=== PATIENT | male | born 1990 | race Caucasian/White ===

== ENCOUNTER 2019-01-31 00:41 | Emergency (ER) | payer OTHER ==
[2019-01-31 00:57] LABS: BILIRUBIN,URINE NEGATIVE (NEGATIVE); GLUCOSE, URINE (UA) NEGATIVE (NEGATIVE); KETONES,URINE (UA) NEGATIVE (NEGATIVE); LEUKOCYTE ESTERASE, URINE NEGATIVE (NEGATIVE); NITRITE,URINE NEGATIVE (NEGATIVE); OCCULT BLOOD,URINE NEGATIVE (NEGATIVE); PROTEIN,URINE NEGATIVE (NEGATIVE); UROBILINOGEN,URINE 0.2 (NORMAL) E.U./dL (NORMAL)
--- NOTE | 2019-01-31 00:59 | ED Physician Documentation ---
PD HPI ABD PAIN - Stated complaint Stated Complaint: NAUSEA/ABD PX - Chief complaint Chief Complaint: Abd Pain - History obtained from History obtained from: Patient - History of Present Illness Timing - onset: Today (onset of nausea and vomiting during PRT exercise this morning. Had some headache during the pushups but was relieved after with Tylenol. Has continued with nausea and poor intake, some vomiting through the day, and is feeling lightheaded and dehydrated into the evening. Trying to drink fluids, but limited by nausea and some emesis. No diarrhea. Denies URI symptoms. Has had some intermittent RLQ pain for few weeks, worse today and more consistent. No dysuria.) Timing - duration: Hours Timing - details: Abrupt onset, Still present Quality: Cramping, Aching, Pain Location: RLQ Radiation: Lower back Improved by: No: Eating, Vomiting Worsened by: Eating Associated symptoms: Nausea, Vomiting. No: Fever, Diarrhea, Constipation, Dysuria Similar symptoms before: Has not had sx before Recently seen: Not recently seen Review of Systems Constitutional: reports: Myalgias. denies: Fever, Chills Nose: denies: Rhinorrhea / runny nose, Congestion Throat: denies: Sore throat Cardiac: denies: Chest pain / pressure Respiratory: denies: Dyspnea, Cough GI: reports: Abdominal Pain (right lower), Nausea, Vomiting. denies: Abdominal Swelling : denies: Dysuria Skin: denies: Rash, Lesions Neurologic: reports: Generalized weakness. denies: Focal weakness, Numbness, Near syncope PD PAST MEDICAL HISTORY - Past Medical History Past Medical History: No Cardiovascular: None Respiratory: None Neuro: None Endocrine/Autoimmune: None GI: None : None HEENT: None Psych: None Musculoskeletal: None Derm: None - Past Surgical History Past Surgical History: Yes General: Other HEENT: Tonsil/Adenoidectomy - Present Medications Home Medications: Ambulatory Orders Medication Instructions Recorded Confirmed Docusate Sodium 100 mg PO DAILY #15 capsule 01/31/19 Ondansetron Odt [Zofran] 4 mg TL Q6H PRN #10 tablet 01/31/19 - Allergies Allergies/Adverse Reactions: Allergies Allergy/AdvReac Type Severity Reaction Status Date / Time ibuprofen [From Motrin] AdvReac Anaphylaxis Verified 01/31/19 00:55 naproxen [From Aleve] AdvReac Anaphylaxis Verified 01/31/19 00:54 - Social History Does the pt smoke?: No Smoking Status: Never smoker Does the pt drink ETOH?: Yes Does the pt have substance abuse?: No - Immunizations Immunizations are current?: Yes - POLST Patient has POLST: No PD ED PE NORMAL - Vitals Vital signs reviewed: Yes - General General: Alert and oriented X 3, No acute distress, Well developed/nourished - HEENT HEENT: Ears normal, Pharynx benign. No: Moist mucous membranes - Neck Neck: Supple, no meningeal sign, Thyroid normal - Cardiac Cardiac: RRR, No murmur - Respiratory Respiratory: Clear bilaterally - Abdomen Abdomen: Normal bowel sounds, Soft, Non distended, No organomegaly, Other (There is some tenderness with only mild guarding in the right lower quadrant. There is no percussion or rebound tenderness. Rest of the abdomen is not tender.) - Male Male : Other (no inguinal hernia felt. ) - Rectal Rectal: Deferred - Back Back: Other (mild right CVA tenderness. ) - Derm Derm: Normal color, Warm and dry - Extremities Extremities: No tenderness to palpate, Normal ROM s pain - Neuro Neuro: Alert and oriented X 3, No motor deficit, Normal speech Results - Vitals Vitals: Vital Signs - 24 hr 01/31/19 01/31/19 01/31/19 00:47 01:05 01:40 Temperature 37.4 C Heart Rate 62 75 Respiratory 17 17 16 Rate Blood Pressure 145/89 H 126/81 H O2 Saturation 98 97 01/31/19 01/31/19 02:25 02:39 Temperature Heart Rate 58 L 65 Respiratory 16 16 Rate Blood Pressure 125/84 H 112/76 O2 Saturation 96 95 Oxygen O2 Source Room air - Labs Labs: Laboratory Tests 01/31/19 01/31/19 01/31/19 00:47 01:20 02:05 WBC 8.3 RBC 4.93 Hgb 15.0 Hct 43.6 MCV 88.4 MCH 30.5 MCHC 34.5 RDW 13.1 Plt Count 221 MPV 8.8 Neut # (Auto) 5.8 Lymph # (Auto) 1.5 Winn # (Auto) 0.8 Eos # (Auto) 0.1 Baso # (Auto) 0.1 Absolute Nucleated RBC 0.00 Nucleated RBC % 0.0 Sodium 140 Potassium 4.2 Chloride 107 Carbon Dioxide 26 Anion Gap 7.0 BUN 18 Creatinine 1.7 H Estimated GFR (MDRD) 49 L Glucose 110 H Calcium 8.3 L Magnesium 2.3 Total Bilirubin 0.8 AST 48 H ALT 51 Alkaline Phosphatase 45 Total Protein 6.6 L Albumin 4.0 Globulin 2.6 Albumin/Globulin Ratio 1.5 Lipase 25 Urine Color YELLOW Urine Clarity CLEAR Urine pH 6.0 Ur Specific [place] <=1.005 Urine Protein NEGATIVE Urine Glucose (UA) NEGATIVE Urine Ketones NEGATIVE Urine Occult Blood NEGATIVE Urine Nitrite NEGATIVE Urine Bilirubin NEGATIVE Urine Urobilinogen 0.2 (NORMAL) Ur Leukocyte Esterase NEGATIVE Ur Microscopic Review NOT INDICATED Urine Culture Comments NOT INDICATED - Rads (name of study) abd/pelvic CT Radiology: Prelim report reviewed (normal appendix. No ureteral stones. No acute process. ), See rad report PD MEDICAL DECISION MAKING - ED course Complexity details: reviewed results, re-evaluated patient (feeling better with IV fluids and meds. Normal labs and CT. I don't know the cause of the RLQ pain intermittently nor the exac today. Presume some intestinal irritation. Consider f/u with PMD for eval of intermittent colitis. The nausea today may have been gastritis or viral. He subsequently feels dehydrated. ), considered differential, d/w patient Departure - Departure Disposition: 01 Home, Self Care Clinical Impression: Dehydration Nausea and vomiting Qualifiers: Vomiting type: unspecified Vomiting Intractability: intractable Qualified Code(s): R11.2 - Nausea with vomiting, unspecified Abdominal pain Qualifiers: Abdominal location: right lower quadrant Qualified Code(s): R10.31 - Right lower quadrant pain Condition: Stable Record reviewed to determine appropriate education?: Yes Instructions: ED Abdominal Pain Unkn Cause, ED Nausea Vomiting Follow-Up: [facility] [Provider Group] Prescriptions: Docusate Sodium 100 mg PO DAILY #15 capsule Ondansetron Odt [Zofran] 4 mg TL Q6H PRN #10 tablet PRN Reason: Nausea / Vomiting Comments: Your urine test blood test and CT scan appear normal. Not sure the cause of the pain in the right side. He can use some Tylenol every 4-6 hours if needed for pains. Stay well-hydrated. Consider a daily stool softener to ensure the stool output is regular. Follow-up with your primary care about it. I presume the nausea and vomiting today were related to irritation of the stomach or possibly a viral illness and then he subsequently got dehydrated. I presume this will improve in the next day or so. Use ondansetron if needed for nausea. Recheck if not improved in the next 1 to 2 days.
[2019-01-31 01:03] LABS: CLARITY,URINE CLEAR (CLEAR)
[2019-01-31] MEDS ORDERED: MORPHINE 10 MG/ML VIAL IVP STA (01:13)
[2019-01-31] MEDS ORDERED: ONDANSETRON 4 MG/2 ML VIAL IVP STA (01:13)
[2019-01-31] MEDS ORDERED: SODIUM CHLORIDE 0.9% 1,000 ML IV ONE ×2 (01:13)
[2019-01-31 01:37] LABS: BASOPHILS # (AUTO) 0.1 10^3/uL (0.0-0.1); BASOPHILS % (AUTO) 0.7 %; EOSINOPHILS # (AUTO) 0.1 10^3/uL (0.0-0.7); EOSINOPHILS % (AUTO) 1.1 %; LYMPHOCYTES # (AUTO) 1.5 10^3/uL (1.5-3.5); LYMPHOCYTES % (AUTO) 18.4 %; MEAN CORPUSCULAR HEMOGLOBIN 30.5 pg (27.0-31.0); MEAN CORPUSCULAR HGB CONC 34.5 g/dL (32.0-36.0); MEAN CORPUSCULAR VOLUME 88.4 fL (80.0-94.0); MEAN PLATELET VOLUME 8.8 fL (7.4-11.4); MONOCYTES # (AUTO) 0.8 10^3/uL (0.0-1.0); NEUTROPHILS # (AUTO) 5.8 10^3/uL (1.5-6.6); NEUTROPHILS % (AUTO) 69.8 %; PLT - PLATELET COUNT 221 10^3/uL (130-450); RED BLOOD COUNT 4.93 10^6/uL (4.70-6.10); RED CELL DISTRIBUTION WIDTH 13.1 % (12.0-15.0); WHITE BLOOD COUNT 8.3 x10^3/uL (4.8-10.8)
--- NOTE | 2019-01-31 01:59 | CT Report ---
Reason: RLQ and back pain; nausea Procedure Date: 01/31/2019 Accession Number: [id number] / [id number] Procedure: CT - Abdomen/Pelvis WO CPT Code: FULL RESULT: EXAM: CT ABDOMEN AND PELVIS (CT KUB) EXAM DATE: 01/31/2019 01:40 AM. CLINICAL HISTORY: RLQ and back pain; nausea. COMPARISONS: None. TECHNIQUE: Routine axial helical CT imaging was performed through the abdomen and pelvis without IV contrast. Reconstructions: Coronal and sagittal. In accordance with CT protocol optimization, one or more of the following dose reduction techniques were utilized for this exam: automated exposure control, adjustment of mA and/or KV based on patient size, or use of iterative reconstructive technique. FINDINGS: Lung Bases: Unremarkable. Right Kidney/Ureter: 2 nonobstructing 1-2 mm calculi. No hydronephrosis or ureter. Left Kidney/Ureter: Multiple nonobstructing 1-2 mm calculi. No hydronephrosis or hydroureter. Other Solid Organs: Noncontrast images of the solid organs are grossly unremarkable. Gallbladder/Bile Ducts: Unremarkable. Peritoneal Cavity: No free fluid, free air or dg adenopathy. Bowel is grossly unremarkable. Normal appendix. Pelvic Organs: No bladder stones or wall thickening. Noncontrast images of the visualized pelvic organs are unremarkable. Vasculature: Unremarkable. Other: None. IMPRESSION: Bilateral tiny nonobstructing calculi. No hydronephrosis or hydroureter. Normal appendix. RADIA
[2019-01-31 02:28] LABS: ALBUMIN/GLOBULIN RATIO 1.5 (1.0-2.2); BILIRUBIN,TOTAL 0.8 mg/dL (0.2-1.0); CALCIUM 8.3 mg/dL (8.5-10.3); CREATININE 1.7 mg/dL (0.6-1.2); MAGNESIUM 2.3 mg/dL (1.7-2.8); TOTAL PROTEIN 6.6 g/dL (6.7-8.2)
[2019-01-31] MEDS ORDERED: ONDANSETRON ODT 4 MG Prepack 2 TL PRN (02:50)
[2019-01-31 03:07] VITALS: BP 129/71
== END 2019-01-31 03:06 | disposition home or self-care (01) ==
LOC: ED 00:41
DX: E86.0 Dehydration (principal); R11.2 Nausea with vomiting, unspecified; R10.31 Right lower quadrant pain
CPT/HCPCS: 36415; 74176; 80053; 81001; 81003; 83690; 83735; 85025; 87086; 96361; 96374; 99284

== ENCOUNTER 2019-09-01 18:56 | Emergency (ER) | payer OTHER ==
[2019-09-01 19:16] LABS: MUDS CUTOFF CONCENTRATIONS CUTOFF CONC BELOW:
[2019-09-01 19:22] LABS: BILIRUBIN,URINE NEGATIVE (NEGATIVE); GLUCOSE, URINE (UA) NEGATIVE (NEGATIVE); KETONES,URINE (UA) NEGATIVE (NEGATIVE); LEUKOCYTE ESTERASE, URINE TRACE (NEGATIVE); NITRITE,URINE NEGATIVE (NEGATIVE); OCCULT BLOOD,URINE NEGATIVE (NEGATIVE); PROTEIN,URINE NEGATIVE (NEGATIVE); UROBILINOGEN,URINE 0.2 (NORMAL) E.U./dL (NORMAL)
[2019-09-01 19:23] LABS: CLARITY,URINE CLEAR (CLEAR)
[2019-09-01 19:25] LABS: BASOPHILS % (AUTO) 0.4 %; EOSINOPHILS # (AUTO) 0.1 10^3/uL (0.0-0.7); EOSINOPHILS % (AUTO) 1.6 %; HGB - HEMOGLOBIN 15.4 g/dL (14.0-18.0); LYMPHOCYTES # (AUTO) 2.6 10^3/uL (1.5-3.5); MEAN CORPUSCULAR HEMOGLOBIN 30.9 pg (27.0-31.0); MEAN CORPUSCULAR HGB CONC 35.2 g/dL (32.0-36.0); MEAN CORPUSCULAR VOLUME 87.8 fL (80.0-94.0); MEAN PLATELET VOLUME 10.2 fL (7.4-11.4); MONOCYTES # (AUTO) 0.6 10^3/uL (0.0-1.0); MONOCYTES % (AUTO) 12.4 %; NEUTROPHILS # (AUTO) 1.8 10^3/uL (1.5-6.6); NEUTROPHILS % (AUTO) 35.2 %; PLT - PLATELET COUNT 224 10^3/uL (130-450); RED BLOOD COUNT 4.98 10^6/uL (4.70-6.10); RED CELL DISTRIBUTION WIDTH 12.2 % (12.0-15.0); WHITE BLOOD COUNT 5.2 x10^3/uL (4.8-10.8)
[2019-09-01 19:31] LABS: AMPHETAMINE SCREEN,URINE NEGATIVE (NEGATIVE); BACTERIA,URINE None Seen /HPF (None Seen); BENZODIAZEPINES SCREEN, URINE NEGATIVE (NEGATIVE); COCAINE SCREEN URINE NEGATIVE (NEGATIVE); METHADONE SCREEN, URINE NEGATIVE (NEGATIVE); METHAMPHETAMINES SCREEN, URINE NEGATIVE (NEGATIVE); OPIATE SCREEN, URINE NEGATIVE (NEGATIVE); OXYCODONE SCREEN, URINE NEGATIVE (NEGATIVE); RBC,URINE None Seen /HPF (0-5); SQUAMOUS EPITHELIAL CELL,UR RARE Squamous (<= Few); TRICYCLIC ANTIDEPRESSANT,URINE NEGATIVE (NEGATIVE)
[2019-09-01 19:32] LABS: PROPOXYPHENE SCREEN, URINE NEGATIVE (NEGATIVE)
[2019-09-01 19:40] LABS: ACETAMINOPHEN < 10 ug/mL (10-30); ALBUMIN 4.9 g/dL (3.2-5.5); ALBUMIN/GLOBULIN RATIO 1.5 (1.0-2.2); ALKALINE PHOSPHATASE 58 IU/L (42-121); ALT ALANINE AMINOTRANSFERASE 165 IU/L (10-60); AST ASPARTATE AMINOTRANSFERASE 78 IU/L (10-42); BILIRUBIN,TOTAL 0.3 mg/dL (0.2-1.0); BUN - BLOOD UREA NITROGEN 12 mg/dL (6-20); CALCIUM 8.9 mg/dL (8.5-10.3); CARBON DIOXIDE - CO2 24 mmol/L (21-32); CHLORIDE 107 mmol/L (101-111); GFR - MDRD 90 (>89); GLUCOSE 138 mg/dL (70-100); LIPASE 40 U/L (22-51); SALICYLATE < 6.0 mg/dL; SODIUM 142 mmol/L (135-145); TOTAL PROTEIN 8.2 g/dL (6.7-8.2)
[2019-09-01] MEDS ORDERED: ACETAMINOPHEN 325 MG TABLET PO STA (22:45)
--- NOTE | 2019-09-02 02:55 | ED Physician Documentation ---
PD HPI MHE - Stated complaint Stated Complaint: SI - Chief complaint Chief Complaint: MHE - History obtained from History obtained from: Patient, Family - History of Present Illness Primary symptom: Suicidal ideation, Depression Timing - onset: Today Contributing factors: Other (caroline commited suicide 4 months ago and parents are .) Similar symptoms before: No diagnosis Recently seen: Not recently seen - Additional information Additional information: 28-year-old active [employer] male has had some alcohol to drink tonight and he indicated to his that he wanted to harm himself. He does have a friend that committed suicide earlier in the year and his parents are currently. The patient has been on [employer] for 3 years his family is in [place] and he has a who he considers his primary family. He is close to his mother and talk to her on the way to the hospital here today. He has a high school education join the [employer] at 20 and he is planning on getting out of the [employer] in 4 months. He denies any current work related issues with performance or discipline. He denies any current suicidal ideation and states that he never made any type of a plan he is just asked for help. He did go to the clinic and was told it would be 1 to 2 weeks for him to get an appointment. He has had counseling once in the aftermath of a debriefing for the suicide of his friend. He felt that that was helpful. Review of Systems Constitutional: denies: Fever Eyes: denies: Decreased vision Ears: denies: Ear pain Nose: reports: Rhinorrhea / runny nose, Congestion Throat: denies: Sore throat Cardiac: denies: Chest pain / pressure Respiratory: reports: Cough. denies: Dyspnea GI: reports: Diarrhea. denies: Abdominal Pain, Nausea, Vomiting : denies: Dysuria, Frequency Skin: denies: Rash Musculoskeletal: denies: Neck pain, Back pain, Extremity pain PD PAST MEDICAL HISTORY - Past Medical History Cardiovascular: None Respiratory: None Neuro: None Endocrine/Autoimmune: None GI: None : None HEENT: None Psych: None Musculoskeletal: None Derm: None - Past Surgical History Past Surgical History: Yes General: Hiatal hernia repair HEENT: Tonsil/Adenoidectomy - Present Medications Home Medications: Ambulatory Orders Medication Instructions Recorded Confirmed Docusate Sodium 100 mg PO DAILY #15 capsule 01/31/19 Ondansetron Odt [Zofran] 4 mg TL Q6H PRN #10 tablet 01/31/19 - Allergies Allergies/Adverse Reactions: Allergies Allergy/AdvReac Type Severity Reaction Status Date / Time ibuprofen [From Motrin] AdvReac Anaphylaxis Verified 01/31/19 00:55 naproxen [From Aleve] AdvReac Anaphylaxis Verified 01/31/19 00:54 - Social History Does the pt smoke?: No Smoking Status: Never smoker Does the pt drink ETOH?: Yes Does the pt have substance abuse?: No - Immunizations Immunizations are current?: Yes - POLST Patient has POLST: No PD ED PE NORMAL - Vitals Vital signs reviewed: Yes (tachy and hypertensive ) - General General: Alert and oriented X 3, No acute distress, Well developed/nourished - HEENT HEENT: Atraumatic, PERRL, EOMI, Ears normal, Moist mucous membranes, Pharynx benign, Dentition benign - Neck Neck: Supple, no meningeal sign, No bony TTP - Cardiac Cardiac: RRR, No murmur - Respiratory Respiratory: No respiratory distress, Clear bilaterally - Abdomen Abdomen: Normal bowel sounds, Soft, Non tender, Non distended, No organomegaly - Back Back: No CVA TTP, No spinal TTP - Derm Derm: Normal color, Warm and dry, No rash - Extremities Extremities: No deformity, No edema - Neuro Neuro: Alert and oriented X 3, conference interpreter 2-12 intact, No motor deficit, No sensory deficit, Normal speech Eye Opening: Spontaneous Motor: Obeys Commands Verbal: Oriented GCS Score: 15 - Psych Psych: Normal mood, Normal affect Results - Vitals Vitals: Vital Signs - 24 hr 09/01/19 18:59 Temperature 37.2 C Heart Rate 117 H Respiratory 22 Rate Blood Pressure 154/98 H O2 Saturation 96 Oxygen O2 Source Room air - Labs Labs: Laboratory Tests 09/01/19 09/01/19 09/01/19 19:12 19:17 19:17 WBC 5.2 RBC 4.98 Hgb 15.4 Hct 43.7 MCV 87.8 MCH 30.9 MCHC 35.2 RDW 12.2 Plt Count 224 MPV 10.2 Neut # (Auto) 1.8 Lymph # (Auto) 2.6 Weber # (Auto) 0.6 Eos # (Auto) 0.1 Baso # (Auto) 0.0 Absolute Nucleated RBC 0.00 Nucleated RBC % 0.0 Sodium 142 Potassium 3.7 Chloride 107 Carbon Dioxide 24 Anion Gap 11.0 BUN 12 Creatinine 1.0 Estimated GFR (MDRD) 90 Glucose 138 H Calcium 8.9 Total Bilirubin 0.3 AST 78 H ALT 165 H Alkaline Phosphatase 58 Total Protein 8.2 Albumin 4.9 Globulin 3.3 Albumin/Globulin Ratio 1.5 Lipase 40 TSH Urine Color YELLOW Urine Clarity CLEAR Urine pH 6.0 Ur Specific [place] <=1.005 Urine Protein NEGATIVE Urine Glucose (UA) NEGATIVE Urine Ketones NEGATIVE Urine Occult Blood NEGATIVE Urine Nitrite NEGATIVE Urine Bilirubin NEGATIVE Urine Urobilinogen 0.2 (NORMAL) Ur Leukocyte Esterase TRACE H Urine RBC None Seen Urine WBC 6-10 H Ur Squamous Epith Cells RARE Squamous Urine Bacteria None Seen Ur Microscopic Review INDICATED Urine Culture Comments INDICATED Salicylates < 6.0 Urine Opiates Screen NEGATIVE Ur Oxycodone Screen NEGATIVE Urine Methadone Screen NEGATIVE Ur Propoxyphene Screen NEGATIVE Acetaminophen < 10 L Ur Barbiturates Screen NEGATIVE Ur Tricyclics Screen NEGATIVE Ur Phencyclidine Scrn NEGATIVE Ur Amphetamine Screen NEGATIVE U Methamphetamines Scrn NEGATIVE U Benzodiazepines Scrn NEGATIVE Urine Cocaine Screen NEGATIVE U Cannabinoids Screen NEGATIVE Ethyl Alcohol 195.1 09/01/19 09/02/19 19:17 01:55 WBC RBC Hgb Hct MCV MCH MCHC RDW Plt Count MPV Neut # (Auto) Lymph # (Auto) Weber # (Auto) Eos # (Auto) Baso # (Auto) Absolute Nucleated RBC Nucleated RBC % Sodium Potassium Chloride Carbon Dioxide Anion Gap BUN Creatinine Estimated GFR (MDRD) Glucose Calcium Total Bilirubin AST ALT Alkaline Phosphatase Total Protein Albumin Globulin Albumin/Globulin Ratio Lipase TSH 2.20 Urine Color Urine Clarity Urine pH Ur Specific [place] Urine Protein Urine Glucose (UA) Urine Ketones Urine Occult Blood Urine Nitrite Urine Bilirubin Urine Urobilinogen Ur Leukocyte Esterase Urine RBC Urine WBC Ur Squamous Epith Cells Urine Bacteria Ur Microscopic Review Urine Culture Comments Salicylates Urine Opiates Screen Ur Oxycodone Screen Urine Methadone Screen Ur Propoxyphene Screen Acetaminophen Ur Barbiturates Screen Ur Tricyclics Screen Ur Phencyclidine Scrn Ur Amphetamine Screen U Methamphetamines Scrn U Benzodiazepines Scrn Urine Cocaine Screen U Cannabinoids Screen Ethyl Alcohol 58.4 PD MEDICAL DECISION MAKING - ED course Complexity details: reviewed old records, reviewed results, re-evaluated patient, considered differential, d/w patient, d/w family ED course: 28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 When I enter into the room the patient is sober he has been present in the emergency department for more than 7 hours and he is playing cards with 2 females. On identifies herself as his . They both appear supportive of the patient. The patient has a broad smile on his face and indicates that he is no longer feeling suicidal but that he does need some help with his issues. He indicates the 2 most prominent issues are the suicide of a friend and the divorce of his parents. He indicates to me that at this time he does not have any plan to hurt himself and does not feel suicidal. I have offered tele-psych to the patient and he readily accepts. I found in my inventory of depression symptoms few symptoms. He denies issues with sleep or eating and denies anhedonia. At shift change the patient is undergoing evaluation with telepsych and his care is turned over to Dr. Shaffer. The expectation being the patient will be discharged to home with follow up at [facility] and with his supportive . Departure - Departure Clinical Impression: Suicidal ideation Condition: Stable Instructions: ED Stress React Follow-Up: Henna Hernandez ARNP [Primary Care Provider] -
--- NOTE | 2019-09-02 07:28 | TELEPSYCH PHYS NOTE ---
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 including suicide by a friend and parents ongoing divorce; BAL on arrival = 195. At this time pt is calm, cooperative, and pleasant though somewhat guarded and quiet. He states he got a little intoxicated and fell into a deep depression. He now feels considerably better, endorses mild symptoms of depression, denies SI/HI/AVH, demonstrates future orientation and motivation for OP MH/SA substance abuse treatment, requests discharge, contracts for safety. Laure at bedside reports pt tends to binge drink but she has no imminent safety concerns. - SI/HI/SELF HARM SI/HI/SELF HARM (CURRENT OR HISTORY OF):: SI (Now resolved) - PSYCHIATRIC HX/TREATMENT HX Psychiatric: None, Depression (No hx intentional self-harm or IP BH) - DRUG/ALCOHOL HX ETOH Use: Beer - MEDICAL HX Does the pt have a hx of MRSA?: No Neurological History: None Eyes, Ears, Nose, Throat: None Cardiovascular: None Respiratory: None Skin: None Endocrine/Autoimmune: None Gastrointestinal: None Urinary: None Musculoskeletal: None Blood Disorders: None - SURGICAL HX General: Hiatal hernia repair - ALLERGIES Allergies (as last confirmed): Allergies Allergy/AdvReac Type Severity Reaction Status Date / Time ibuprofen [From Motrin] AdvReac Anaphylaxis Verified 01/31/19 00:55 naproxen [From Aleve] AdvReac Anaphylaxis Verified 01/31/19 00:54 - FAMILY PSYCH/SUICIDE/SOCIAL HX-MENTAL Family - Suicide - Social Hx and Mental Status Exam: Lives with his supportive ; plans on from the December 24; no legal problems; friend comitteed suicide in January; family hx non-contributory - TREATMENT/PHARMACOLOGICAL RECOMMENDATION Treatment - Pharmacological - Therapy Recommendations: Diagnosis: Unspecified Mood disorder, alcohol use disorder Recommendations: D/C to home. Follow-up with OP MH/SA resources. - TIME SPENT & PROVIDER LOCATION Telepsych consultation conducted via videoconferencing: Yes List names and roles of persons who participated in consult: Nikia Kelsey at bedside Telepsych Provider Location: [facility] Time Telepsych consult began: 06:30 Time Telepsych consult completed: 07:20
[2019-09-02 07:55] VITALS: BP 139/94
== END 2019-09-02 09:03 | disposition home or self-care (01) ==
LOC: ED 18:56
DX: F32.9 Major depressive disorder, single episode, unspecified (principal); F39 Unspecified mood [affective] disorder; R45.851 Suicidal ideations; F10.929 Alcohol use, unspecified with intoxication, unspecified; Y90.6 Blood alcohol level of 120-199 mg/100 ml
CPT/HCPCS: 36415; 80320; 80329; 81001; 83690; 87086; 99283; A9270; G0425; Q3014; 80053; 80306; 80307; 81003; 84443; 85025

== ENCOUNTER 2019-10-28 10:06 | Outpatient (CLI) | payer OTHER ==
[2019-10-28 12:40] VITALS: BP 125/84
--- NOTE | 2019-10-28 12:40 | SLEEP CARE CONSULTATION ---
Information from patient questionnaire entered by Taylor Lopez. I have reviewed and concur with the information entered by Taylor Lopez. This document represents the service I personally performed and the decisions made by me, Salo Dee MD, [facility]. History of Present Illness Reason for Visit: New patient Chief Complaint: reports: Insomnia, Snoring, Excessive daytime sleepiness, Frequent awakenings at night, Other ( bothered with snoring) Duration of Symptoms: 1 year Usual bedtime: 2300 work days, lately sleeping from 1000 to 1900 Time it takes to fall asleep: minutes Snores at night: Yes Observed to quit breathing while asleep: No Sleeps alone due to snoring: Yes Number of times waking at night: 1-2 Reasons for waking at night: reports: Snoring, Bathroom, Other (sense of falling) Toss, Turn, or Twitch while sleeping: Yes Recalls having dreams: Yes Usually gets out of bed at: 0530 work, 1900 days off Feels refreshed in the morning: No Morning headache: No Sleepy or fatigued during the day: Yes Ever fallen asleep while driving: No Takes day naps: Yes Dreams during day naps: Yes Prior sleep studies: No Additional HPI information: I had the pleasure of seeing Mr. Joshi today regarding the possibility of him having a sleep disorder. As you know, he is a 28 year old gentleman who complains of loud snore, frequent awakenings, and excessive daytime sleepiness. The patient tells me that he normally goes to bed around 10 - 11 pm, and it takes him approximately just a few minutes to fall asleep. 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 He has been told that he snores loudly and irregularly at night. He has also been observed to stop breathing in his sleep. His can still sleep in the same bed. He can recall waking up on the average of 1 - 2 times during the night. Most of the time he wakes up because of having to use the bathroom. He has awakened occasionally because of his own snoring, choking, and having to gasp for air. There is a lot of tossing and turning in his sleep. No somniloquy (sleep talking) or somnambulism (sleep walking). Generally he can recall having dreams. In the morning he usually gets up out of the bed around 5:30 a.m. not feeling refreshed nor rested. He usually does not have a morning headache. During the day he complains of feeling sleepy and fatigued. His score on Perry Sleepiness Scale is 15 out of 24. He has never fallen asleep while driving nor has had any accident due to sleepiness. He usually takes naps during the day when he works night. Upon falling asleep during the day he reports having dreams with long naps. He reports having sleep paralysis, possible cataplexy, and symptoms of restless leg syndrome. He reports having impaired concentration during the day. Subjective Initial Perry Sleepiness Scale score: 15 Past Medical History Past Medical History: reports: Anxiety (no diagnosis but being seen), Depression (no diagnosis but being seen), Other (S/P tonsillectomy) Social History The patient's occupation is active . Patient is and lives in [place]. Have you smoked in the past 12 months: No Quit date: 2017 Alcohol use: No Caffeine use: No Family History Family history of sleep disordered breathing: Yes Family Hx Sleep Apnea: Father: Snoring (pretty bad) Allergies and Home Medications Drug allergies reviewed: Yes (ibuprofen) Home medication list reviewed: Yes (melatonin) Review of Systems Weight gain over past 5 years: 20 Cardiovascular: denies: high blood pressure, palpitations, chest pain, irregular heart rate or pulse, leg or foot swelling, have to sleep sitting up, other Respiratory: denies: shortness of breath, wheeze, sputum production, chronic cough, other Gastrointestinal: denies: heartburn, difficulty swallowing, nausea, vomitting, diarrhea, abdominal pain, other Urinary: denies: incontinence, frequency, urgency, impotence, other Neurological: denies: headaches, seizure, head trauma, disorientation, speech dysfunction, gait or balance problems, fainting or unconsciousness, other Psychiatric: reports: anxiety Ear/Nose/Throat: reports: tonsillectomy, wisdom teeth removed Endocrine: reports: sluggishness, too hot or cold, excessive thirst Musculoskeletal: denies: joint pain, neck pain, back pain, joint swelling, muscle pain or cramping, mobility problems, other Immunologic: reports: allergies to food or environment Physical Exam Vital signs obtained and entered by: Dr. Nikomborirak Blood Pressure: 125/84 Cuff size: regular Heart Rate: 85 O2 Saturation: 95 Height: 5 ft 4 in Weight: 190 lb Body Mass Index: 32.5 BMI Classification: Obesity Class 1 Neck circumference: 17 Mood/affect: normal HEENT: No craniofacial malformation Nostrils: patent to airflow Turbinates: normal Septum: midline Mouth and throat: narrow oropharynx Soft palate: long Hard palate: normal Uvula: normal Uvula visualization: 50% Mallampati Class II Tongue: normal in size Tonsils: absent bilaterally Chin and jaw: normal size and position Neck: normal w/o lymphadenopathy or thyromegaly Heart: regular rate and rhythm Lungs: clear bilaterally Abdomen: soft, non-tender Extremities: no edema or clubbing Neurologic: intact, no focal deficits Impression and Plan IMPRESSION: 1. Obstructive Sleep Apnea-Hypopnea Syndrome, as suggested by history of loud and irregular snoring, observed cessation of breath while asleep, unrefreshed sleep, cognitive impairment, and daytime hypersomnolence. Narrow oropharynx and obesity are common predisposing factors for obstructive sleep apnea-hypopnea syndrome. Pathophysiology of sleep-disordered breathing was discussed. I recommend proceeding to polysomnography to confirm the diagnosis and to assess severity. If he has significant sleep disordered breathing, a manual CPAP titration study will also be performed to find the optimal treatment pressure. I informed the patient of what the sleep studies involve and after some discussion, he agreed to proceed. Plan: 1. Schedule an in-laboratory polysomnography. 2. Avoid long distance driving or when feeling sleepy. 3. Avoid alcohol, sedative and muscle relaxant around bedtime. 4. Attempt to lose weight. 5. Return in 1 to 2 weeks after the study to discuss results and initiate therapy. I spent 100% of this visit face to face with the patient with greater than 50% of this was spent time counseling the patient and coordination of care.
== END 2019-10-28 10:07 | disposition home or self-care (01) ==
LOC: SC 10:06
PROVIDERS: ATTEND Internal Medicine Pulmonary Disease
DX: R06.83 Snoring (principal); R06.81 Apnea, not elsewhere classified; G47.8 Other sleep disorders; R41.89 Other symptoms and signs involving cognitive functions and awareness; G47.10 Hypersomnia, unspecified; E66.9 Obesity, unspecified; Z68.32 Body mass index [BMI] 32.0-32.9, adult
CPT/HCPCS: 99203; 99212

== ENCOUNTER 2019-11-03 19:13 | Outpatient (CLI) | payer OTHER | END 2019-11-03 19:14 | disposition home or self-care (01) | LOC: SC 19:13 | PROVIDERS: ATTEND Internal Medicine Pulmonary Disease | DX: G47.61 Periodic limb movement disorder (principal); R06.83 Snoring; E66.9 Obesity, unspecified; Z68.32 Body mass index [BMI] 32.0-32.9, adult | CPT/HCPCS: 95810 ==

== ENCOUNTER 2019-11-25 11:02 | Outpatient (CLI) | payer OTHER ==
[2019-11-25 12:08] VITALS: BP 110/80
--- NOTE | 2019-11-25 12:08 | SLEEP CARE CONSULTATION ---
Information from patient questionnaire entered by Marlena Granados. I have reviewed and concur with the information entered by Marlena Granados. This document represents the service I personally performed and the decisions made by me, Henna Charles RN, MSN, [employer]. History of Present Illness Initial Erin Sleepiness Scale score: 15 Current Erin Sleepiness Scale score: 17 Additional HPI information: LAYNE FERNANDEZ returns for follow up and results of the recently performed polysomnograp I explained the pathophysiology behind obstructive sleep apnea. Patient does not have sleep apnea and was advised how weight gain could increase the risk of developing sleep apnea in the future. I strongly encouraged the patient to lose weight. Patient has moderate to loud snoring. Snoring can be reduced by weight loss. Weight loss is best achieved with diet consult. Patient instructed to contact PCP for referral. Snoring can also be treated with an oral appliance from a dentist. Advised to check insurance coverage. He is not interested at this time. In addition, an ENT evaluation can be do to see if other treatment is indicated. Patient counseled not drink alcohol less than 4 hours before bedtime as it can increase snoring and apnea. Patient was cautioned about risks of drowsy driving until sleepiness symptoms resolve. Patient denies drowsy driving. [facility] patient education on snoring and sleep apnea given and reviewed. Sleep Study - Results Polysomnography/Home Sleep Study results: The quality of the study is good. The patient had normal sleep efficiency. The sleep architecture was relatively normal as well considering the first-night effect. Respiratory monitoring showed no significant sleep disordered breathing (AHI = 1.7) or hypoxia (cathi oxygen saturation of 90%). The few respiratory events occurred independently of sleep stage and body position (supine AHI = 1.1; non-supine = 1.97). Snore was moderate to loud in intensity. There was mild periodic leg movement of sleep not associated with sleep fragmentation. Cardiac rhythm was normal sinus rhythm without significant arrhythmia. No abnormal behavior (parasomnia) observed during the night. Allergies and Home Medications Known drug allergies: Yes (ibuprofen, naproxen= facial swelling / hives ) Home medication list reviewed: No Review of Systems Review of systems same as previous: Yes Physical Exam Blood Pressure: 110/80 Cuff size: long Heart Rate: 88 O2 Saturation: 97 Height: 5 ft 4 in Weight: 204 lb (with fatigues and boots ) Body Mass Index: 35.0 BMI Classification: Obese Impression and Plan 1. Snoring but no significant sleep disordered breathing. Patient advised that often weight loss will reduce snoring as well as apnea risk. An oral appliance can also be used for snoring. This would require a dental consultation. Patient cautioned not to use other online appliances as can cause bite issues. He is not interested at this time. An ENT consult can also be helpful to determine if any other treatment is an option. 2. Periodic limb movement, mild, that did not fragment patients sleep. Periodic limb movement of sleep (PLMS) is characterized by episodes of repetitive limb movements that occur during sleep and usually involve the lower limbs. The etiology is unknown but can be associated with restless leg syndrome (RLS), neuropathy, spinal cord diseases, kidney disease, rheumatological disorders, narcolepsy, obstructive sleep apnea, and REM sleep behavior disorder. Other factors that can increase PLMS and/or RLS are heredity and iron deficiency as reflected by a low serum ferritin level below 50 to 75mcg / L. Several medications can precipitate or aggravate PLMS such as selective serotonin re- uptake inhibitor antidepressants, tricyclic antidepressants, lithium, and dopamine receptor antagonists with the exception of bupropion. Caffeine can also aggravate PLMS and should be avoided. Sleep hygiene methods can also improve sleep as well as lifestyle changes such as regular exercise. Patient was advised that no treatment is needed at this time. If symptoms increase, then further evaluation is indicated. 3. Insomnia, reported as difficulty falling asleep and only get a few hours of sleep at night. He will nap a few times during the day for a couple of hours during the day and after work . Thus he is counseled how his napping takes away his need to sleep during the night. The best way is to wake up at the same time every day and go to bed about 15-16 hours later and only when sleepy. If he has to nap it is to be less than a hour and before 3pm. He is also to incorporate a relaxing ritual before bedtime and avoid electronics an hour before bed. If further problems sleeping, he is to complete a sleep diary and follow up for further evaluation. If he continues to have fatigue after maintaining a regular sleep schedule with sufficient sleep, then he is to follow up with PCP for further evaluation. AASM How to sleep better given and reviewed. * Regulate sleep schedule * Avoid naps * Attempt to lose weight * Avoid alcohol consumption near bedtime * The patient is cautioned about driving until sleepiness is completely resolved. * Return as needed. Time Spent with Patient (minutes): 30 I spent 100% of this visit face to face with the patient with greater than 50% of this was spent time counseling the patient and coordination of care.
== END 2019-11-25 11:03 | disposition home or self-care (01) ==
LOC: SC 11:02
PROVIDERS: ATTEND Nurse Practitioner Family
DX: R06.83 Snoring (principal); G47.61 Periodic limb movement disorder; G47.00 Insomnia, unspecified; E66.9 Obesity, unspecified; Z68.35 Body mass index [BMI] 35.0-35.9, adult
CPT/HCPCS: 99212; 99214

== ENCOUNTER 2020-12-08 13:34 | Outpatient (CLI) | payer OTHER ==
--- NOTE | 2020-12-08 17:00 | CT Report ---
PROCEDURE: Abdomen/Pelvis WO INDICATIONS: HUMATURIA, KIDNEY STONE TECHNIQUE: Noncontrast 5 mm thick sections acquired from the diaphragms to the symphysis. 5 mm coronal and sagi ttal reformats were then performed. For radiation dose reduction, the following was used: automated exposure control, adjustment of mA and/or kV according to patient size. COMPARISON: 01/31/2019. FINDINGS: Image quality: Excellent. ABDOMEN: Lung bases: Lung bases are clear. Heart size is normal. Solid organs: Liver and spleen are normal in size. Gallbladder is unremarkable Pancreas is normal in contours. No adrenal nodules. Previously described nonobstructing tiny punctate bilateral nephrol iths are not appreciated on today's exam. Kidneys are otherwise normal in size, without hydronephrosi s or nephrolithiasis. Normal course of the bilateral ureters. No ureteral stones. Peritoneum and bowel: Unenhanced bowel loops demonstrate normal wall thickness and caliber. No free fluid or air. Normal appendix. Nodes and vessels: No retroperitoneal or mesenteric adenopathy by size criteria. Aorta and inferior vena cava are normal in caliber. Miscellaneous: No ventral hernias. PELVIS: Genitourinary: Bladder wall thickness is normal. Miscellaneous: No inguinal hernias or adenopathy. Bones: No suspicious bony lesions. No acute vertebral body compression fractures. Bilateral L5 par s defects. IMPRESSION: 1. Previously described tiny punctate nonobstructing bilateral nephroliths are not seen on today's ex amination. No acute abnormalities identified in the abdomen or pelvis. 2. Normal appendix. 3. Bilateral L5 pars defects without associated spondylolisthesis. Reviewed by: Robert Shi MD on 12/08/2020 4:59 PM PDT Approved by: Robert Shi MD on 12/08/2020 4:59 PM PDT Station ID: [id number]
== END 2020-12-08 13:35 | disposition home or self-care (01) ==
LOC: DI 13:34
PROVIDERS: ATTEND Family Medicine
DX: R31.9 Hematuria, unspecified (principal); N20.0 Calculus of kidney

== ENCOUNTER 2021-08-10 06:59 | Emergency (ER) | payer OTHER ==
--- NOTE | 2021-08-10 07:29 | ED Physician Documentation ---
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 Markedly painful this morning.). No: Fall Where injury occurred: Home Timing - onset: How many days ago (3) Timing - duration: Days (3) Timing - details: Gradual onset, Still present (much worse this morning.) Associated symptoms: No: Weakness, Numbness, Swelling Similar symptoms before: Has not had sx before Review of Systems Constitutional: denies: Fever, Chills Nose: denies: Rhinorrhea / runny nose, Congestion Throat: denies: Sore throat Respiratory: denies: Cough Skin: denies: Rash, Lesions, Abrasion (s) Neurologic: denies: Focal weakness, Numbness PD PAST MEDICAL HISTORY - Past Medical History Past Medical History: Yes Cardiovascular: None Respiratory: None Neuro: None Endocrine/Autoimmune: None GI: None : None HEENT: None Psych: None, Depression Musculoskeletal: None Derm: None - Past Surgical History Past Surgical History: Yes General: Hiatal hernia repair HEENT: Tonsil/Adenoidectomy - Present Medications Home Medications: Ambulatory Orders Medication Instructions Recorded Confirmed HYDROcod/ACETAM 5/325 [[place] 5/325] 1 ea PO Q6H PRN #12 tablet 08/10/21 dexAMETHasone [Decadron] 4 mg PO DAILY #5 tablet 08/10/21 - Allergies Allergies/Adverse Reactions: Allergies Allergy/AdvReac Type Severity Reaction Status Date / Time ibuprofen [From Motrin] AdvReac Anaphylaxis Verified 08/10/21 07:10 naproxen [From Aleve] AdvReac Anaphylaxis Verified 08/10/21 07:10 - Social History Does the pt smoke?: No Smoking Status: Never smoker Does the pt drink ETOH?: Yes Does the pt have substance abuse?: No - Immunizations Immunizations are current?: Yes - POLST Patient has POLST: No PD ED PE NORMAL - Vitals Vital signs reviewed: Yes - General General: Alert and oriented X 3, Well developed/nourished, Other (appears in pain from wrist and guarding ROM. ) - Derm Derm: Normal color, Warm and dry, No rash - Extremities Extremities: Other (right wrist with tenderness dorsally and to base of thumb. Not tender in MCPs. ) - Neuro Neuro: Alert and oriented X 3, No motor deficit, No sensory deficit Results - Vitals Vitals: Vital Signs - 24 hr 08/10/21 08/10/21 07:06 08:50 Temperature 35.9 C L 36.7 C Heart Rate 70 76 Respiratory 18 16 Rate Blood Pressure 159/97 H 135/94 H O2 Saturation 96 99 Oxygen O2 Source Room air - Rads (name of study) wrist xray Radiology: Prelim report reviewed (no fractures), See rad report PD MEDICAL DECISION MAKING - ED course Complexity details: considered differential (sprain/tendonitis, can get xray to ensure no fracture. ), d/w patient Departure - Departure Disposition: 01 Home, Self Care Clinical Impression: Right wrist sprain Qualifiers: Encounter type: initial encounter Qualified Code(s): S63.501A - Unspecified sprain of right wrist, initial encounter Condition: Stable Record reviewed to determine appropriate education?: Yes Instructions: ED Sprain Wrist Follow-Up: Guru Wilson DO [Primary Care Provider] - Prescriptions: dexAMETHasone [Decadron] 4 mg PO DAILY #5 tablet HYDROcod/ACETAM 5/325 [[place] 5/325] 1 ea PO Q6H PRN #12 tablet PRN Reason: Pain Comments: Your x-ray appears normal without any fractures. Likely consideration would be some inflammation and injury of the ligaments and tendons through the wrist and fingers (sprain/tendinitis). I would treat this with less mobility of the wrist and thumb and fingers with the splint. Ice elevate and rest them often the next day or 2 to decrease swelling. Use Decadron steroid anti-inflammatory (due to your allergy to NSAIDs). Use Tylenol 500 mg 4 times a day with food for the next few days. To that add hydrocodone every 4-6 hours if needed for worse pain. I would anticipate improvement over the next several days to a week. Progress activity as able. I transmited the scripts to [facility]. I am prescribing a short course of narcotic pain medication for you. These are potentially dangerous and addictive medications that should be used carefully. These medications may constipate you. Take an [id number] stool softener such as docusate twice daily with plenty of water while taking these medications. If you go 24 hours without a bowel movement, take [id number] MiraLAX, per package instructions. Do not drink or drive while taking these medications. If you received narcotic or sedating medications while in the emergency department do not drive for 24 hours. Store this medication in a safe, secure place and out of reach of children. It is a violation of federal law to give or sell this medication to another person or to use in a manner other than prescribed. The ED will not refill narcotic prescriptions, including prescriptions lost or stolen. You can dispose of unwanted medications at the [facility]'s office or at several pharmacies such as [facility]. Forms: Activity restrictions Discharge Date/Time: 08/10/21 08:58
[2021-08-10] MEDS ORDERED: ACETAMINOPHEN 325 MG TABLET PO STA (07:42)
[2021-08-10] MEDS ORDERED: DEXAMETHASONE 10 MG/ML VIAL PO STA (07:44)
[2021-08-10] MEDS ORDERED: CHERRY SYRUP 10 ML UDC PO ONE (07:44)
--- NOTE | 2021-08-10 08:15 | XRAY Report ---
PROCEDURE: Wrist 3 View RT INDICATIONS: wrist pain onset last night TECHNIQUE: 3 views of the wrist were acquired. COMPARISON: None. FINDINGS: Bones: No fractures or dislocations. No suspicious bony lesions. Soft tissues: There is soft tissue swelling dorsal to the carpal bones. No suspicious soft tissue ca lcifications. IMPRESSION: 1. No fracture or dislocation. Reviewed by: Woodrow Moulton MD on 08/10/2021 8:13 AM [facility] Approved by: Woodrow Moulton MD on 08/10/2021 8:13 AM [facility] Station ID: [id number]
[2021-08-10 08:51] VITALS: BP 135/94
== END 2021-08-10 08:58 | disposition home or self-care (01) ==
LOC: ED 06:59
DX: S63.501A Unspecified sprain of right wrist, initial encounter (principal); X58.XXXA Exposure to other specified factors, initial encounter; Y93.66 Activity, soccer; Y92.009 Unspecified place in unspecified non-institutional (private) residence as the place of occurrence of the external cause
CPT/HCPCS: 73110; 99283; A9270

== ENCOUNTER 2021-12-08 08:00 | Outpatient (CLI) | payer OTHER ==
[2021-12-08 22:52] LABS: CHLAMYDIA TRACHOMATIS DNA NEGATIVE (NEGATIVE); NEISSERIA GONORRHOEAE DNA NEGATIVE (NEGATIVE)
[2021-12-09 13:05] LABS: HIV AG/AB 4TH GEN NON-REACTIVE (NON-REACTIVE)
[2021-12-11 05:46] LABS: HSV 1 IGG TYPE SPECIFIC AB 9.26 index; HSV 2 IGG TYPE SPECIFIC AB 1.65 index
== END 2021-12-08 23:59 ==
LOC: LAB.N 08:00
PROVIDERS: ATTEND Family Medicine
DX: Z11.3 Encounter for screening for infections with a predominantly sexual mode of transmission (principal)
CPT/HCPCS: 36415; 86592; 86695; 86696; 87389; 87491; 87591; 87661

== ENCOUNTER 2022-01-22 08:00 | Outpatient (CLI) | payer OTHER ==
--- NOTE | 2022-01-22 14:02 | XRAY Report ---
PROCEDURE: Foot 3 View LT INDICATIONS: FOOT PAIN, LEFT TECHNIQUE: 3 views of the foot were acquired. COMPARISON: None FINDINGS: Bones: No fractures or dislocations. No suspicious bony lesions. Soft tissues: No tibiotalar joint effusion. Achilles tendon appears normal. IMPRESSION: No visualized acute fracture or dislocation. However, occult injury cannot be excluded. Recommend jay rt interval imaging follow-up in 7-10 days as clinically indicated for additional evaluation. Reviewed by: Sadaf Ramirez MD on 01/22/2022 2:01 PM PDT Approved by: Sadaf Ramirez MD on 01/22/2022 2:01 PM PDT Station ID: [id number]
== END 2022-01-22 23:59 | disposition home or self-care (01) ==
LOC: DI.N 08:00
PROVIDERS: ATTEND Physician Assistant
DX: M79.672 Pain in left foot (principal)

== ENCOUNTER 2023-10-23 13:07 | Outpatient (CLI) | payer OTHER ==
--- NOTE | 2023-10-23 20:25 | XRAY Report ---
PROCEDURE: Lumbar Spine 2-3V INDICATIONS: RIGHT SCIATICA TECHNIQUE: 2 views of the lumbar spine were acquired. COMPARISON: None. FINDINGS: Bones: 5 [id number] vertebrae are present. 6 mm retrolisthesis at L2-3, L3-4 and L4-5 levels a re seen. There is 9 mm anterolisthesis of L5 on S1. Mild degenerative endplate changes are noted at L4-5 and L5-S1 levels. No vertebral body compression fractures. No suspicious bony lesions. Soft tissues: Overlying bowel gas pattern is normal. No suspicious soft tissue calcifications. IMPRESSION: Spondylolisthesis at L2-3 through L5-S1 levels as above. Mild degenerative endplate changes are noted at L4-5 and L5-S1 levels. No acute compression fracture. Reviewed by: Edgar Crespo MD on 10/23/2023 8:24 PM PST Approved by: Edgar Crespo MD on 10/23/2023 8:24 PM PST Station ID: [id number]
== END 2023-10-23 13:08 | disposition home or self-care (01) ==
LOC: DI.N 13:07
PROVIDERS: ATTEND Family Medicine
DX: M47.816 Spondylosis without myelopathy or radiculopathy, lumbar region (principal); M47.817 Spondylosis without myelopathy or radiculopathy, lumbosacral region; M43.16 Spondylolisthesis, lumbar region; M43.17 Spondylolisthesis, lumbosacral region